=== PATIENT | male | born 1935 | race Hispanic/Latino ===

== ENCOUNTER 2017-04-12 13:45 | Inpatient (IN) | payer MEDICARE ==
[2017-04-10 10:39] VITALS: PULSE 80
[2017-06-22 22:48] VITALS: BMI 34.7
--- NOTE | 2017-06-22 23:20 | CP.PCM.HP ---
History of Present Illness - History of Present Illness History of Present Illness: PMD: Dr Carreon Chief Complaint: Blurred vision The Patient was seen and examined in the Rehab Unit HPI: 81 years old male transferred from the [facility] on 06/22/17 for Acute Rehab and continued medical care. He has hx of 2 CVA both treated with TPA, bladder cancer, A. fibrillation, HTN, GERD, CHF CAD and was admitted to the [facility] on 06/17/17 with left eye blurred vision and diagnosed with Right MCA dysfunction. PMH: HTN; GERD; CAD; A Fib; Bladder Cancer PSH: Back Surgery; Partial Uretertectomy; TURB; IVC filter placed on 06/19/17 SH: Lives alone, admits to 40 years of tobacco use but quit over 30 years ago. Denies ETOH and illicit drug use FH: Unknown Allergies: NKDA Present on Admission - Present on Admission Any Indicators Present on Admission: No History of DVT/PE: No History of Uncontrolled Diabetes: No Urinary Catheter: No Decubitus Ulcer Present: No Review of Systems - Constitutional Constitutional: absent: Anorexia, Chills, Fever, Weight Gain - EENT Eyes: Blurred Vision. absent: Requires Corrective Lenses Ears: absent: Decreased Hearing, Ear Discharge, Tinnitus Nose/Mouth/Throat: Epistaxis - Cardiovascular Cardiovascular: Leg Edema. absent: Chest Pain, Dyspnea - Respiratory Respiratory: absent: Cough, Dyspnea, Wheezing - Gastrointestinal Gastrointestinal: Constipation. absent: Diarrhea, Nausea, Vomiting - Genitourinary Genitourinary: absent: Dysuria, Flank Pain, Hematuria - Musculoskeletal Musculoskeletal: absent: Arthralgias, Back Pain, Muscle Weakness - Integumentary Integumentary: Swelling. absent: Pruritus, Rash - Neurological Neurological: absent: Confusion, Dizziness, Focal Weakness, Weakness - Psychiatric Psychiatric: absent: Anxiety, Confusion, Depression, Panic Attacks - Endocrine Endocrine: absent: Palpitations, Polydipsia, Polyphagia, Polyuria Past Patient History - Infectious Disease Hx of Infectious Diseases: None - Tetanus Immunizations Tetanus Immunization: Unknown - Past Medical History & Family History Past Medical History?: Yes - Past Social History Smoking Status: Never Smoked Chewing Tobacco Use: No Cigar Use: No Alcohol: None Home Situation {Lives}: Alone - CARDIAC Hx Atrial Fibrillation: Yes Hx Cardia Arrhythmia: Yes Hx Hypertension: Yes - PULMONARY Hx Respiratory Disorders: No - NEUROLOGICAL Hx Neurological Disorder: Yes HX Cerebrovascular Accident: Yes - HEENT Hx HEENT Problems: Yes Hx Cataracts: Yes (MARGO) - RENAL Hx Chronic Kidney Disease: No - ENDOCRINE/METABOLIC Hx Diabetes Mellitus Type 2: Yes - HEMATOLOGICAL/ONCOLOGICAL Hx Cancer: Yes (treated prostate/bladder) - INTEGUMENTARY Hx Basil Cell: No Other/Comment: skin in both lower ext hyperpigmented - MUSCULOSKELETAL/RHEUMATOLOGICAL Hx Musculoskeletal Disorders: Yes - GASTROINTESTINAL Hx Gastrointestinal Disorders: Yes Hx Gastroesophageal Reflux: Yes - GENITOURINARY/GYNECOLOGICAL Hx Genitourinary Disorders: Yes (bladder tumor removed 2010) Hx Prostate Problems: Yes - PSYCHIATRIC Hx Psychophysiologic Disorder: No Hx Substance Use: No - SURGICAL HISTORY Hx Surgeries: Yes Other/Comment: pilonidal cyst removed. TURP. Partial Uterotomy - ANESTHESIA Hx Anesthesia: Yes Hx Anesthesia Reactions: No Meds Allergies/Adverse Reactions: Allergies Allergy/AdvReac Type Severity Reaction Status Date / Time No Known Allergies Allergy Verified 06/22/17 22:48 Physical Exam - Constitutional Appears: No Acute Distress - Head Exam Head Exam: ATRAUMATIC, NORMAL INSPECTION, NORMOCEPHALIC - Eye Exam Eye Exam: EOMI, Normal appearance Pupil Exam: NORMAL ACCOMODATION, PERRL - ENT Exam ENT Exam: Mucous Membranes Moist, Normal Exam, Normal External Ear Exam - Neck Exam Neck exam: Positive for: Full Rom, Normal Inspection. Negative for: Lymphadenopathy, Tenderness - Respiratory Exam Respiratory Exam: Clear to Auscultation Bilateral. absent: Rales, Rhonchi, Wheezes - Cardiovascular Exam Cardiovascular Exam: Irregular Rhythm, +S1, +S2. absent: REGULAR RHYTHM, RRR - GI/Abdominal Exam GI & Abdominal Exam: Normal Bowel Sounds, Soft. absent: Guarding, Organomegaly , Tenderness - Rectal Exam Rectal Exam: Deferred - Extremities Exam Extremities exam: Positive for: full ROM, normal inspection. Negative for: calf tenderness, pedal edema - Back Exam Back exam: NORMAL INSPECTION. 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 Alston neurology for Follow up Dr. Gomez cardiology for follow up 1st. CT Head - No acute infarct Repeat Head CT on 06/18 demonstrated no hemorrhagic conversion Third repeat Head CT on 06/19 (ordered due to new onset headache in light of current sequelae) demonstrates confirmation of ischemic PROSTHETIST territory infarct. MRI brain w.o. contrast revealed trace petechial hemorrhages questioned at the medial anterior right occipital lobe with signal changes seen only in the gradient All anticoagulation has been stopped as a result of the hemorrhages. Repeat Head CT on 06/21 shows: Subtle high attenuation in the anterior superior occipital lobe could represent petechial hemorrhage. Per Dr. Alston--no anticoagulation at this point including no aspirin OT/PT History of CVA (cerebrovascular accident) Patient had two CVA, both with TPA admin No TPA for this current CVA since it met criteria for contraindication Was previously on warfarin but stopped due to bleeding s/p TURB Dr. Alston recommended Eliquis Crestor 10 PO HS Unable to anticoagulate due to the hemorrhages seen on MRI on 06/19/[address] Alston--no anticoagulation at this point including no aspirin Hypertension Lasix 20 PO HS HCTZ 25 PO QD Metoprolol 50 PO QD Atrial Fibrillation Rate controlled Metoprolol 50 mg PO QD Unable to anticoagulate due to the hemorrhages Repeat Head CT on 06/21 shows: Subtle high attenuation in the anterior superior occipital lobe could represent petechial hemorrhage. Per Dr. Alston--no anticoagulation at this point including no aspirin until after 4 weeks: Start with low dose ASA and dlow dose Eliquis. If medically stable at theat time , Eliquis can be increased to theraupetic dose of 5mg BID DVT Unable to anticoagulate at this time due to hemorrhage seen on MRI and follow up head CT IVC Filter History of epistaxis Per ENT Dr. Olsen, outpatient follow up since patient is not actively bleeding Leg pain Likely venous stasis Lac-Hydrin emollient and topical steroid Improvements noted Diabetes Newly diagnosed with hemoglobin A1c 7.7 Regular ISS low dose for now Prophylactic measure Heart Healthy Diet mod consistent carbs Protonix 40 mg SCDs c/i due to leg swelling Medication anticoagulation c/i due to petechial hemorrhage Colace - Date & Time Date: 06/22/17 Time: 23:20
[2017-06-23] MEDS: Insulin Regular 100 units/ml SC SCH ×4 (06:43→21:19)
[2017-06-23 09:08] LABS: HEMOGLOBIN 14.5 g/dL (12.0-18.0); MEAN CELL VOLUME 84.3 fl (80.0-94.0); MEAN CORPUSCULAR HEMOGLOBIN 28.3 pg (27.0-31.0); MEAN CORPUSCULAR HGB CONC 33.6 g/dL (33.0-37.0); RBC 5.11 Mil/uL (4.40-5.90); RED CELL DISTRIBUTION WIDTH 15.4 % (11.5-14.5); WHITE BLOOD COUNT 6.9 K/uL (4.8-10.8)
[2017-06-23 09:18] LABS: BLOOD UREA NITROGEN 30 mg/dl (9-20); GFR AFRICAN-AMERICAN > 60; GFR NON-AFRICAN AMERICAN 58
--- NOTE | 2017-06-23 09:52 | PCM.OPOC ---
Physiatry Overall Plan of Care - Overall Plan of Care Estimated Length of Stay in Weeks: 3 Rehab Impairment: Mobility, Gait, Balance, Coordination Etiologic Diagnosis: Cerebrovascular Accident Rehab/Medical Prognosis: Fair - Anticipated Interventions Physical Therapy:: Yes Occupational Therapy:: Yes Speech Therapy:: No Recreational Therapy:: Yes - Therapy Goals Bed Mobility: Supervision Ambulation: Supervision Functional Positional Changes:: Supervision - Discharge Plan Identification of Barriers to Discharge: Home Situation Discharge Destination: Home
--- NOTE | 2017-06-23 09:54 | CP.PCM.CON ---
History of Present Illness - History of Present Illness History of Present Illness: Dr Arana PMR consultation coverage on Cody Antony, born 1935 who has been admitted to [facility] for acute inpatient rehabilitation following a right MCA distribution infarct. He is stable albeit with functional deficits that require acute inpatient rehabilitation. Review of Systems - Constitutional Constitutional: absent: Chills - EENT Eyes: absent: Change in Vision Ears: absent: Ear Discharge, Disequilibrium, Dizziness Nose/Mouth/Throat: absent: Nasal Congestion - Cardiovascular Cardiovascular: absent: Chest Pain - Respiratory Respiratory: absent: Dyspnea, Hemoptysis, Dyspnea on Exertion - Gastrointestinal Gastrointestinal: absent: Belching, Constipation - Musculoskeletal Musculoskeletal: absent: Back Pain - Integumentary Integumentary: absent: Bleeding Lesions, Rash, Wounds - Neurological Neurological: absent: Abnormal Movements, Radicular Pain, Vertigo Past Patient History - Infectious Disease Hx of Infectious Diseases: None - Tetanus Immunizations Tetanus Immunization: Unknown - Past Medical History & Family History Past Medical History?: Yes - Past Social History Smoking Status: Never Smoked Chewing Tobacco Use: No Cigar Use: No Alcohol: None Home Situation {Lives}: Alone - CARDIAC Hx Atrial Fibrillation: Yes Hx Cardia Arrhythmia: Yes Hx Hypertension: Yes - PULMONARY Hx Respiratory Disorders: No - NEUROLOGICAL Hx Neurological Disorder: Yes HX Cerebrovascular Accident: Yes - HEENT Hx HEENT Problems: Yes Hx Cataracts: Yes (MARGO) - RENAL Hx Chronic Kidney Disease: No - ENDOCRINE/METABOLIC Hx Diabetes Mellitus Type 2: Yes - HEMATOLOGICAL/ONCOLOGICAL Hx Cancer: Yes (treated prostate/bladder) - INTEGUMENTARY Hx Basil Cell: No Other/Comment: skin in both lower ext hyperpigmented - MUSCULOSKELETAL/RHEUMATOLOGICAL Hx Musculoskeletal Disorders: Yes - GASTROINTESTINAL Hx Gastrointestinal Disorders: Yes Hx Gastroesophageal Reflux: Yes - GENITOURINARY/GYNECOLOGICAL Hx Genitourinary Disorders: Yes (bladder tumor removed 2010) Hx Prostate Problems: Yes - PSYCHIATRIC Hx Psychophysiologic Disorder: No Hx Substance Use: No - SURGICAL HISTORY Hx Surgeries: Yes Other/Comment: pilonidal cyst removed. TURP. Partial Uterotomy - ANESTHESIA Hx Anesthesia: Yes Hx Anesthesia Reactions: No Meds Allergies/Adverse Reactions: Allergies Allergy/AdvReac Type Severity Reaction Status Date / Time No Known Allergies Allergy Verified 06/22/17 22:48 - Medications Medications: Current Medications Acetaminophen (Tylenol 325mg Tab) 650 mg PO Q4 PRN PRN Reason: Headache Last Admin: 06/23/17 06:37 Dose: 650 mg Acetaminophen (Tylenol 325mg Tab) 650 mg PO Q8H PRN PRN Reason: pain Atorvastatin Calcium (Lipitor) 20 mg PO HS [facility] Furosemide (Lasix) 40 mg PO DAILY [facility] Hydrochlorothiazide (Hydrodiuril) 25 mg PO DAILY [facility] Insulin Human Regular (Humulin R) 0 units SC ACHS [facility] PRN Reason: Protocol Last Admin: 06/23/17 06:43 Dose: Not Given Lactic Acid (Lac-Hydrin 12% Lotion (225 G)) 1 applic EXT BID [facility] Losartan Potassium (Cozaar) 50 mg PO BID [facility] Metoprolol Succinate (Toprol Xl) 100 mg PO DAILY [facility] Potassium Chloride (K-Dur 20 Meq Er Tab) 40 meq PO DAILY [facility] Physical Exam - Constitutional Appears: Well, Non-toxic, No Acute Distress - Head Exam Head Exam: ATRAUMATIC, NORMAL INSPECTION, NORMOCEPHALIC - Eye Exam Eye Exam: EOMI - ENT Exam ENT Exam: Mucous Membranes Moist - Respiratory Exam Respiratory Exam: NORMAL BREATHING PATTERN - Cardiovascular Exam Cardiovascular Exam: REGULAR RHYTHM - GI/Abdominal Exam GI & Abdominal Exam: Normal Bowel Sounds - Extremities Exam Extremities exam: Positive for: full ROM. Negative for: calf tenderness, pedal edema - Neurological Exam Neurological exam: Alert, CN II-XII Intact, Oriented x3 - Psychiatric Exam Psychiatric exam: Normal Affect, Normal Mood Results - Vital Signs Recent Vital Signs: Last Vital Signs Temp 97.0 F L 06/23/17 07:49 Pulse 88 06/23/17 09:34 Resp 20 06/23/17 07:49 BP 123/78 06/23/17 07:49 Pulse Ox 95 06/23/17 09:34 - Labs Result Diagrams: 06/23/17 08:30 06/23/17 08:30 Labs: Laboratory Results - last 24 hr 06/23/17 06/23/17 06/23/17 00:16 06:27 08:30 WBC 6.9 RBC 5.11 Hgb 14.5 Hct 43.1 MCV 84.3 MCH 28.3 MCHC 33.6 RDW 15.4 H Plt Count 190 Sodium Potassium Chloride Carbon Dioxide Anion Gap BUN Creatinine Est GFR ( Amer) Est GFR (Non-Af Amer) POC Glucose (mg/dL) 93 79 Random Glucose Calcium 06/23/17 08:30 WBC RBC Hgb Hct MCV MCH MCHC RDW Plt Count Sodium 140 Potassium 3.8 Chloride 100 Carbon Dioxide 31 H Anion Gap 13 BUN 30 H Creatinine 1.2 Est GFR ( Amer) > 60 Est GFR (Non-Af Amer) 58 POC Glucose (mg/dL) Random Glucose 105 Calcium 9.0 Assessment & Plan - Assessment and Plan (Free Text) Assessment: PT/OT to continue to help increase functional independence Team conference for d/c planning Pain: controlled Vascular: no evidence of DVT GI: No evidence of constipation or diarrhea Patient is an excellent acute rehabilitation candidate and will have focused PT , OT and recreational therapy to help facilitate a safe and appropriate d/c plan impairment code 01.1
[2017-06-23] MEDS: Metoprolol Succinate 100 mg XL Tab PO SCH (10:05)
[2017-06-23] MEDS: Potassium Chloride 20 mEq ER Tab PO SCH (10:06)
[2017-06-23] MEDS ORDERED: Patient's Own Med (Rosuvastatin Calcium [Crestor] 10 MG) PO SCH (22:00)
[2017-06-24] MEDS: Insulin Regular 100 units/ml SC SCH ×4 (06:52→21:00)
[2017-06-24] MEDS: Potassium Chloride 20 mEq ER Tab PO SCH (09:00)
[2017-06-24] MEDS: Metoprolol Succinate 100 mg XL Tab PO SCH (09:02)
[2017-06-25] MEDS: Insulin Regular 100 units/ml SC SCH (06:30)
[2017-06-25] MEDS: Potassium Chloride 20 mEq ER Tab PO SCH (08:51)
--- NOTE | 2017-06-25 11:03 | CP.PCM.PN ---
Subjective - Date & Time of Evaluation Date of Evaluation: 06/25/17 Time of Evaluation: 10:00 - Subjective Subjective: Patient seen and examined. He is sitting up in his chair accompanied by family. He states that he is feeling better. He notes that he is still having blurry vision in his left eye in the morning but it improves by the afternoon. Has no other complaints at this time. Denies cp, sob. Hemodynamically stable, afebrile. Objective - Vital Signs/Intake and Output Vital Signs (last 24 hours): Temp Pulse Resp BP Pulse Ox 96.8 F L 95 H 20 123/77 96 06/25/17 07:40 06/25/17 07:40 06/25/17 07:40 06/25/17 08:52 06/25/17 07:40 - Medications Medications: Current Medications Acetaminophen (Tylenol 325mg Tab) 650 mg PO Q4 PRN PRN Reason: Headache Last Admin: 06/25/17 07:04 Dose: 650 mg Acetaminophen (Tylenol 325mg Tab) 650 mg PO Q8H PRN PRN Reason: pain 1-10. Atorvastatin Calcium (Lipitor) 20 mg PO HS [facility] Last Admin: 06/24/17 21:02 Dose: 20 mg Furosemide (Lasix) 40 mg PO DAILY [facility] Last Admin: 06/25/17 08:52 Dose: 40 mg Hydrochlorothiazide (Hydrodiuril) 25 mg PO DAILY [facility] Last Admin: 06/25/17 08:51 Dose: 25 mg Insulin Human Regular (Humulin R) 0 units SC ACHS [facility] PRN Reason: Protocol Last Admin: 06/25/17 06:30 Dose: Not Given Lactic Acid (Lac-Hydrin 12% Lotion (225 G)) 1 applic EXT BID [facility] Last Admin: 06/25/17 08:51 Dose: 1 applic Losartan Potassium (Cozaar) 50 mg PO BID [facility] Last Admin: 06/24/17 16:20 Dose: Not Given Metoprolol Succinate (Toprol Xl) 100 mg PO DAILY [facility] Last Admin: 06/24/17 09:02 Dose: 100 mg Potassium Chloride (K-Dur 20 Meq Er Tab) 40 meq PO DAILY [facility] Last Admin: 06/25/17 08:51 Dose: 40 meq - Labs Labs: 06/23/17 08:30 06/23/17 08:30 - Additional Findings Additional findings: Physical exam: Constitutional- cooperative, awake, alert Head- NCAT, PERRL Eye- PERRL, EOMI ENT- normal exam, MMM. Neck- normal inspection, supple, no JVD Respiratory- CTAB, no wheezes rales rhonchi Cardiovascular- RRR, +S1, +S2 no MRG GI/Abdominal- normal bowel sounds, soft, no mass, no hsm Skin- warm, dry Extremities Exam- normal capillary refill, normal inspection Neurological Exam- alert, awake, oriented Psych- normal mood, normal affect Assessment and Plan - Assessment and Plan (Free Text) Plan: This is an 81 year old malewith pmh of atrial fibrillation, s/p 2 CVA tx with tPA, bladder cancer, htn, GERD, chronic CHF, CAD, transferred from [facility] on 06/22/2017 for acute rehabilitation after 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 Acute CVA with Hemianopia of the left eye Dr. Alston neurology consulted Dr. Gomez cardiology consulted 1st. CT Head - No acute infarct Repeat Head CT on 06/18 demonstrated no hemorrhagic conversion Third repeat Head CT on 06/19 (ordered due to new onset headache in light of current sequelae) demonstrates confirmation of ischemic [employer] territory infarct. MRI brain w.o. contrast revealed trace petechial hemorrhages questioned at the medial anterior right occipital lobe with signal changes seen only in the gradient All anticoagulation has been stopped as a result of the hemorrhages. Repeat Head CT on 06/21 shows: Subtle high attenuation in the anterior superior occipital lobe could represent petechial hemorrhage. Per Dr. Alston--no anticoagulation at this point including no aspirin OT/PT History of CVA (cerebrovascular accident) Patient had two CVA, both with TPA admin No TPA for this current CVA due to contraindication Was previously on warfarin but stopped due to bleeding s/p TURB Dr. Alston recommended Eliquis Crestor 10 PO HS Unable to anticoagulate due to the hemorrhages seen on MRI on 06/19/[address] Alston--no anticoagulation at this point including no aspirin Hypertension- well controlled Lasix 20 PO HS HCTZ 25 PO QD Metoprolol 50 PO QD Atrial Fibrillation Rate controlled Metoprolol 50 mg PO QD Unable to anticoagulate due to the hemorrhages Repeat Head CT on 06/21 shows: Subtle high attenuation in the anterior superior occipital lobe could represent petechial hemorrhage. Per Dr. Alston--no anticoagulation at this point including no aspirin until after 4 weeks: Start with low dose ASA and low dose Eliquis. If medically stable at theat time , Eliquis can be increased to theraupetic dose of 5mg BID DVT Unable to anticoagulate at this time due to hemorrhage seen on MRI and follow up head CT IVC Filter History of epistaxis Per ENT Dr. Olsen, outpatient follow up since patient is not actively bleeding Leg pain Likely venous stasis Lac-Hydrin emollient and topical steroid Improvements noted Diabetes Newly diagnosed with hemoglobin A1c 7.7 Regular ISS low dose for now Prophylactic measure Heart Healthy Diet mod consistent carbs Protonix 40 mg SCDs c/i due to leg swelling Medication anticoagulation c/i due to petechial hemorrhage Heidi
[2017-06-25] MEDS: Metoprolol Succinate 100 mg XL Tab PO SCH ×2 (14:42→17:50)
[2017-06-26 06:12] LABS: HEMOGLOBIN 14.4 g/dL (12.0-18.0); MEAN CORPUSCULAR HEMOGLOBIN 28.1 pg (27.0-31.0); MEAN CORPUSCULAR HGB CONC 33.1 g/dL (33.0-37.0); RBC 5.11 Mil/uL (4.40-5.90); RED CELL DISTRIBUTION WIDTH 15.3 % (11.5-14.5); WHITE BLOOD COUNT 7.2 K/uL (4.8-10.8)
[2017-06-26 06:25] LABS: BLOOD UREA NITROGEN 34 mg/dl (9-20); GFR AFRICAN-AMERICAN > 60; GFR NON-AFRICAN AMERICAN 58
[2017-06-26] MEDS: Metoprolol Succinate 100 mg XL Tab PO SCH (08:20)
[2017-06-26] MEDS: Potassium Chloride 20 mEq ER Tab PO SCH (08:21)
--- NOTE | 2017-06-26 13:19 | CP.PCM.PN ---
Subjective - Date & Time of Evaluation Date of Evaluation: 06/26/17 Time of Evaluation: 13:18 - Subjective Subjective: Patient seen in room doing ok denies sob/cp motivated in therapies continue current care team conf. tomorrow Objective - Vital Signs/Intake and Output Vital Signs (last 24 hours): Temp Pulse Resp BP Pulse Ox 97.2 F L 84 22 140/87 96 06/26/17 08:45 06/26/17 08:45 06/26/17 08:45 06/26/17 08:45 06/26/17 08:45 - Medications Medications: Current Medications Acetaminophen (Tylenol 325mg Tab) 650 mg PO Q4 PRN PRN Reason: Headache Last Admin: 06/26/17 09:09 Dose: 650 mg Acetaminophen (Tylenol 325mg Tab) 650 mg PO Q8H PRN PRN Reason: pain 1-10. Atorvastatin Calcium (Lipitor) 20 mg PO HS [facility] Last Admin: 06/25/17 21:02 Dose: 20 mg Furosemide (Lasix) 40 mg PO DAILY [facility] Last Admin: 06/26/17 08:21 Dose: 40 mg Hydrochlorothiazide (Hydrodiuril) 25 mg PO DAILY [facility] Last Admin: 06/26/17 08:20 Dose: 25 mg Lactic Acid (Lac-Hydrin 12% Lotion (225 G)) 1 applic EXT BID [facility] Last Admin: 06/26/17 08:21 Dose: 1 applic Losartan Potassium (Cozaar) 50 mg PO BID [facility] Last Admin: 06/26/17 08:20 Dose: 50 mg Metoprolol Succinate (Toprol Xl) 100 mg PO DAILY [facility] Last Admin: 06/26/17 08:20 Dose: 100 mg Potassium Chloride (K-Dur 20 Meq Er Tab) 40 meq PO DAILY [facility] Last Admin: 06/26/17 08:21 Dose: 40 meq - Labs Labs: 06/26/17 05:30 06/26/17 05:30
[2017-06-27] MEDS: Metoprolol Succinate 100 mg XL Tab PO SCH (08:28)
[2017-06-27] MEDS: Potassium Chloride 20 mEq ER Tab PO SCH (08:28)
[2017-06-27] MEDS: Alum-Mag Hydrox-Simethicone Susp (30 mL) PO PRN (10:58)
--- NOTE | 2017-06-27 12:16 | PSY.TMCNF ---
Nursing - Vital Signs Vital Signs (Last 8 hours): Vital Signs 06/27/17 06/27/17 06/27/17 08:09 08:27 08:28 Temperature 98.1 F Pulse Rate 93 H 77 Respiratory 22 Rate Blood Pressure 134/84 134/55 L 134/55 L O2 Sat by Pulse 99 Oximetry 06/27/17 06/27/17 09:00 10:56 Temperature 98.1 F Pulse Rate 77 Respiratory 22 Rate Blood Pressure 134/55 L 136/71 O2 Sat by Pulse Oximetry Pain: 0 - Precautions: Precautions: Fall Prevention - Medications/Other Issues Comment: Pt is at moderate nutritional risk. Goals: 1. Consume 75-100% at mealtimes. 2. Maintain good glycemic control:GLU:70-180mg/dl. Follow-up assessment due by 06/30/2017. - Consults Comment: Dr. Gaytan-Tao - Toileting Toileting: Supervision - Bladder Management Bladder Pattern: Normal Voiding Method: Urinal Bladder Management: Supervision Frequency of Accidents: 0 - Bowel Management Bowel Pattern: Normal Bowel Management: Supervision Frequency of Accidents: 0 - Transfers Transfers: Minimal Assistance - ADL's ADL's: Minimal Assistance - Pain Management Comments: Tylenol PRN ORONA - Patient/Family Teaching Comments: Care post CVA and safety precautions - Goals/Time Frame Comments: Per multidisciplinary care plan and goals - Provider Provider: Sidra GARAY RN CRRN Physical Therapy - Bed Mobility Bed Mobility: Contact Guard - Transfers Wheelchair to Mat: Contact Guard Sit to Stand: Contact Guard - Ambulation Level of Assistance: Supervision, Verbal Cues, Contact Guard Distance (ft.): 150 Assistive Devices: Single point cane - Stair Negotiation Stairs: Level of Assistance: Verbal Cues, Contact Guard Number of Stairs: 12 Stairs: Assistive Devices: Left Handrail, Single point cane - Standing Balance Static Stand: Supervision Dynamic Stand: Minimal Assistance - Pain Management Techniques: Medication, Relaxation Techniques Comment: Alleviating technique : time. -Patient has intermittent c/o pressure headache usually in the AM or post therapy session . Pain is alleviated with medication and/or time. -Patient has c/o blurred vision usually in AM but he states does not have the blurred vision in the PM. -Pt had c/o indigestion today. Nursing made aware. Described pain as slight and uncomfortable but not painful. - Insight/Carryover Insight/Carryover: Good - Patient/Family Education Comment: Continued patient edu on safety awareness during transfer, self care and mobility to reduce the risk of falling w/in the home. - Assessment/Plan Assessment: Pt was educated on the benefits of participating in recreation therapy sessions throughout stay on unit. Pt presents with decrease command following and decrease safety awareness. Pt would benefit from participating in recreation therapy sessions throughout stay on unit to improve arousal level, activity tolerance level, and direction following. - Goals Timeframe: 2 weeks Goals: Patient's goals are to be modified independent with self care , mobility , transfers, as well as improve strength, activity tolerance and dynamic standing standing balance during ADLs/IADLs in order to reduce the risk of falling w/in the home and prepare for a safe and sustainable D/C home. - Provider License Number: [id number] Occupational Therapy - Arousal/Attention/Orientation Patient Orientation: Person, Place - ADL/IADL Self Feeding: Set-up Help Grooming: Set-up Help Bathing-Upper Extremity: Supervision, Set-up Help Bathing-Lower Extremity: Supervision, Contact Guard Dressing-Upper Extremity: Set-up Help Dressing-Lower Extremity: Set-up Help, Contact Guard Homemaking: Minimal Assistance Comment: Patient benefits from extended rest breaks and increased time to complete tasks. - Sitting Balance Static Sitting: Independent without upper extremity support Dynamic Sitting: Reaches across midline, Reaches out of base of support, Requires supervision - Transfers Wheelchair to Bed Transfers: Supervision, Contact Guard Toilet Transfers: Supervision, Contact Guard Tub Transfers: Supervision, Contact Guard Comment: single point cane used for transfers, commode with spalshguard using during toileting - Upper Extremity Status Right Upper Extremity Comment: WFL Left Upper Extremity Comment: WFL - Pain Alleviating Techniques: Medication, Relaxation Techniques Comment: Alleviating technique : time. -Patient has intermittent c/o pressure headache usually in the AM or post therapy session . Pain is alleviated with medication and/or time. -Patient has c/o blurred vision usually in AM but he states does not have the blurred vision in the PM. -Pt had c/o indigestion today. Nursing made aware. Described pain as slight and uncomfortable but not painful. - Insight/Carryover Insight/Carryover: Good - Patient/Family Education Comment: Continued patient edu on safety awareness during transfer, self care and mobility to reduce the risk of falling w/in the home. - Assessment/Plan Assessment: Pt was educated on the benefits of participating in recreation therapy sessions throughout stay on unit. Pt presents with decrease command following and decrease safety awareness. Pt would benefit from participating in recreation therapy sessions throughout stay on unit to improve arousal level, activity tolerance level, and direction following. - Goals Timeframe: 2 weeks Goals: Patient's goals are to be modified independent with self care , mobility , transfers, as well as improve strength, activity tolerance and dynamic standing standing balance during ADLs/IADLs in order to reduce the risk of falling w/in the home and prepare for a safe and sustainable D/C home. - Provider Therapist: PETE Pruett/[facility] - Consult Information Patient on Program: Yes Medical Diagnosis: CVA Treatment Diagnosis: mild-moderate cognitive deficits - Assessment Problem Solving Impairment: Mild Memory Impairment: Moderate - Plan Assessment: Pt was educated on the benefits of participating in recreation therapy sessions throughout stay on unit. Pt presents with decrease command following and decrease safety awareness. Pt would benefit from participating in recreation therapy sessions throughout stay on unit to improve arousal level, activity tolerance level, and direction following. - Provider Therapist: Jane Pinto License Number: [id number] Recreational Therapy - Participation Participation: Participates in Individual and/or Group Sessions, Monitors His/ Her Own Leisure Time - Attendance Attendance: 3-5 times per week - Activities Leisure Activities: Cards and Games - Socialization Level of Socialization: Initiates/interacts freely with care givers and peer - Diversional Time Diversional Time: television, likes to play cards - Assessment Assessment/Plan: Pt was educated on the benefits of participating in recreation therapy sessions throughout stay on unit. Pt presents with decrease command following and decrease safety awareness. Pt would benefit from participating in recreation therapy sessions throughout stay on unit to improve arousal level, activity tolerance level, and direction following. Problems Currently Limiting Participation: decrease leisure awareness level, blurry vision in L eye, [place] at times Goals and Time Frame: Pt will be encouraged to participate in 1:1 and group recreation therapy sessions 3-5x week to improve activity awareness level, arousal level, direction following, and command following. - Provider Therapist: Daiana Hansen, CURRICULUM DEVELOPMENT COORDINATOR #[id number] Nutrition - Current Diet Current Diet/ Supplement/ Feedings: Mech altered (finely chop), moderate consistent CHO, 2 gm Na diet with honey thick liquids and Ensure Pudding TID. - Appetite Percent Meal Consumed: 75-100% - Comments Comments: Care post CVA and safety precautions - Assessment/Goals/Time Frame Assessment/Goals/Time Frame: Pt is at moderate nutritional risk. Goals: 1. Consume 75-100% at mealtimes. 2. Maintain good glycemic control:GLU:70-180mg/ dl. Follow-up assessment due by 06/30/2017. - Provider Provider: Lisa Gamino MS, RD Case Management - Discharge Plan Discharge Plan: Home alone Rehabilitation Plan - Discharge Plan Estimated Date of Discharge: 07/04/17 Discharge to: Home
--- NOTE | 2017-06-27 12:27 | CP.PCM.PN ---
Subjective - Date & Time of Evaluation Date of Evaluation: 06/27/17 Time of Evaluation: 12:26 - Subjective Subjective: Patient seen in room doing well ambulating 150' discussed with him at length that driving is not recommended at this point continue current care Objective - Vital Signs/Intake and Output Vital Signs (last 24 hours): Temp Pulse Resp BP Pulse Ox 98.1 F 77 22 136/71 99 06/27/17 09:00 06/27/17 09:00 06/27/17 09:00 06/27/17 10:56 06/27/17 08:09 - Medications Medications: Current Medications Acetaminophen (Tylenol 325mg Tab) 650 mg PO Q4 PRN PRN Reason: Headache Last Admin: 06/27/17 06:20 Dose: 650 mg Acetaminophen (Tylenol 325mg Tab) 650 mg PO Q8H PRN PRN Reason: pain 1-10. Al Hydrox/Mg Hydrox/Simethicone (Maalox Plus 30 Ml) 30 ml PO Q6 PRN PRN Reason: Indigestion / Heartburn Last Admin: 06/27/17 10:58 Dose: 30 ml Atorvastatin Calcium (Lipitor) 20 mg PO HS [facility] Last Admin: 06/26/17 22:32 Dose: 20 mg Furosemide (Lasix) 40 mg PO DAILY [facility] Last Admin: 06/27/17 08:28 Dose: 40 mg Hydrochlorothiazide (Hydrodiuril) 25 mg PO DAILY [facility] Last Admin: 06/27/17 08:27 Dose: 25 mg Lactic Acid (Lac-Hydrin 12% Lotion (225 G)) 1 applic EXT BID [facility] Last Admin: 06/27/17 08:27 Dose: 1 applic Losartan Potassium (Cozaar) 50 mg PO BID [facility] Last Admin: 06/27/17 08:27 Dose: 50 mg Metoprolol Succinate (Toprol Xl) 100 mg PO DAILY [facility] Last Admin: 06/27/17 08:28 Dose: 100 mg Potassium Chloride (K-Dur 20 Meq Er Tab) 40 meq PO DAILY [facility] Last Admin: 06/27/17 08:28 Dose: 40 meq - Labs Labs: 06/26/17 05:30 06/26/17 05:30
--- NOTE | 2017-06-27 14:36 | CP.PCM.PN ---
Subjective - Date & Time of Evaluation Date of Evaluation: 06/27/17 Time of Evaluation: 11:45 - Subjective Subjective: Patient seen and examined at bedside. He is complaining of some indigestion/ heartburn this morning and was given Maalox with some improvement. He has no other complaints today other than noting continued blurry vision in his left eye in the morning that improves somewhat by the afternoon. Denies cp, sob. Hemodynamically stable. Objective - Vital Signs/Intake and Output Vital Signs (last 24 hours): Temp Pulse Resp BP Pulse Ox 98.1 F 77 22 136/71 99 06/27/17 09:00 06/27/17 09:00 06/27/17 09:00 06/27/17 10:56 06/27/17 08:09 - Medications Medications: Current Medications Acetaminophen (Tylenol 325mg Tab) 650 mg PO Q4 PRN PRN Reason: Headache Last Admin: 06/27/17 06:20 Dose: 650 mg Acetaminophen (Tylenol 325mg Tab) 650 mg PO Q8H PRN PRN Reason: pain 1-10. Al Hydrox/Mg Hydrox/Simethicone (Maalox Plus 30 Ml) 30 ml PO Q6 PRN PRN Reason: Indigestion / Heartburn Last Admin: 06/27/17 10:58 Dose: 30 ml Atorvastatin Calcium (Lipitor) 20 mg PO HS [facility] Last Admin: 06/26/17 22:32 Dose: 20 mg Furosemide (Lasix) 40 mg PO DAILY [facility] Last Admin: 06/27/17 08:28 Dose: 40 mg Hydrochlorothiazide (Hydrodiuril) 25 mg PO DAILY [facility] Last Admin: 06/27/17 08:27 Dose: 25 mg Lactic Acid (Lac-Hydrin 12% Lotion (225 G)) 1 applic EXT BID [facility] Last Admin: 06/27/17 08:27 Dose: 1 applic Losartan Potassium (Cozaar) 50 mg PO BID [facility] Last Admin: 06/27/17 08:27 Dose: 50 mg Metoprolol Succinate (Toprol Xl) 100 mg PO DAILY [facility] Last Admin: 06/27/17 08:28 Dose: 100 mg Potassium Chloride (K-Dur 20 Meq Er Tab) 40 meq PO DAILY [facility] Last Admin: 06/27/17 08:28 Dose: 40 meq - Labs Labs: 06/26/17 05:30 06/26/17 05:30 - Additional Findings Additional findings: Constitutional- cooperative, awake, alert Head- NCAT, PERRL Eye- PERRL, EOMI ENT- normal exam, MMM. Neck- normal inspection, supple, no JVD Respiratory- CTAB, no wheezes rales rhonchi Cardiovascular- RRR, +S1, +S2 no MRG GI/Abdominal- normal bowel sounds, soft, no mass, no hsm Skin- warm, dry Extremities Exam- normal capillary refill, normal inspection Neurological Exam- alert, awake, oriented Psych- normal mood, normal affect Assessment and Plan - Assessment and Plan (Free Text) Plan: This is an 81 year old male with pmh of atrial fibrillation, s/p 2 CVA tx with tPA, bladder cancer, htn, GERD, chronic CHF, CAD, transferred from [facility] on 06/22/2017 for acute rehabilitation after 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 Acute CVA with Hemianopia of the left eye Dr. Alston neurology consulted Dr. Gomez cardiology consulted 1st. CT Head - No acute infarct Repeat Head CT on 06/18 demonstrated no hemorrhagic conversion Third repeat Head CT on 06/19 (ordered due to new onset headache in light of current sequelae) demonstrates confirmation of ischemic B[employer] NOTE DESIGNER territory infarct. MRI brain w.o. contrast revealed trace petechial hemorrhages questioned at the medial anterior right occipital lobe with signal changes seen only in the gradient All anticoagulation has been stopped as a result of the hemorrhages. Repeat Head CT on 06/21 shows: Subtle high attenuation in the anterior superior occipital lobe could represent petechial hemorrhage. Per Dr. Alston--no anticoagulation at this point including no aspirin OT/PT History of CVA (cerebrovascular accident) Patient had two CVA, both with TPA admin No TPA for this current CVA due to contraindication Was previously on warfarin but stopped due to bleeding s/p TURB Dr. Alston recommended Eliquis Crestor 10 PO HS Unable to anticoagulate due to the hemorrhages seen on MRI on 06/19/[address] Alston--no anticoagulation at this point including no aspirin Hypertension- well controlled Lasix 20 PO HS HCTZ 25 PO QD Metoprolol 50 PO QD Atrial Fibrillation Rate controlled Metoprolol 50 mg PO QD Unable to anticoagulate due to the hemorrhages Repeat Head CT on 06/21 shows: Subtle high attenuation in the anterior superior occipital lobe could represent petechial hemorrhage. Per Dr. Alston--no anticoagulation at this point including no aspirin until after 4 weeks: Start with low dose ASA and low dose Eliquis. If medically stable at theat time , Eliquis can be increased to theraupetic dose of 5mg BID DVT Unable to anticoagulate at this time due to hemorrhage seen on MRI and follow up head CT IVC Filter History of epistaxis Per ENT Dr. Olsen, outpatient follow up since patient is not actively bleeding Leg pain Likely venous stasis Lac-Hydrin emollient and topical steroid Improvements noted Prophylactic measure Heart Healthy Diet mod consistent carbs Protonix 40 mg SCDs c/i due to leg swelling Medication anticoagulation c/i due to petechial hemorrhage Colace
[2017-06-28] MEDS: Potassium Chloride 20 mEq ER Tab PO SCH (08:19)
[2017-06-28] MEDS: Metoprolol Succinate 100 mg XL Tab PO SCH (08:19)
[2017-06-29] MEDS: Alum-Mag Hydrox-Simethicone Susp (30 mL) PO PRN (08:38)
[2017-06-29] MEDS: Metoprolol Succinate 100 mg XL Tab PO SCH (10:00)
--- NOTE | 2017-06-29 14:23 | CP.PCM.PN ---
Subjective - Date & Time of Evaluation Date of Evaluation: 06/29/17 Time of Evaluation: 13:00 - Subjective Subjective: Patient seen and examined sitting out of bed to chair. He is complaining of a nosebleed today and yesterday and is complaining of nasal mucosal dryness. He does state that his heartburn has improved. Chronic blurry vision as previously documented. Denies cp/sob. Hemodynamically stable, afebrile. Objective - Vital Signs/Intake and Output Vital Signs (last 24 hours): Temp Pulse Resp BP Pulse Ox 98 F 82 20 130/70 98 06/29/17 09:54 06/29/17 10:00 06/29/17 09:54 06/29/17 10:00 06/29/17 09:54 - Medications Medications: Current Medications Acetaminophen (Tylenol 325mg Tab) 650 mg PO Q4 PRN PRN Reason: Headache Last Admin: 06/29/17 08:40 Dose: 650 mg Acetaminophen (Tylenol 325mg Tab) 650 mg PO Q8H PRN PRN Reason: pain 1-10. Last Admin: 06/29/17 06:05 Dose: 650 mg Al Hydrox/Mg Hydrox/Simethicone (Maalox Plus 30 Ml) 30 ml PO Q6 PRN PRN Reason: Indigestion / Heartburn Last Admin: 06/29/17 08:38 Dose: 30 ml Atorvastatin Calcium (Lipitor) 20 mg PO HS [facility] Last Admin: 06/28/17 21:48 Dose: 20 mg Furosemide (Lasix) 40 mg PO DAILY [facility] Last Admin: 06/29/17 08:38 Dose: 40 mg Hydrochlorothiazide (Hydrodiuril) 25 mg PO DAILY [facility] Last Admin: 06/29/17 08:37 Dose: 25 mg Lactic Acid (Lac-Hydrin 12% Lotion (225 G)) 1 applic EXT BID [facility] Last Admin: 06/29/17 09:00 Dose: 1 applic Losartan Potassium (Cozaar) 50 mg PO BID [facility] Last Admin: 06/29/17 08:37 Dose: 50 mg Metoprolol Succinate (Toprol Xl) 100 mg PO DAILY [facility] Last Admin: 06/29/17 10:00 Dose: 100 mg Sodium Chloride ([place] Nasal [place]) 2 sprays DAR BID [facility] - Labs Labs: 06/26/17 05:30 06/26/17 05:30 - Additional Findings Additional findings: Constitutional- cooperative, awake, alert Head- NCAT, PERRL Eye- PERRL, EOMI ENT- normal exam, MMM. Neck- normal inspection, supple, no JVD Respiratory- CTAB, no wheezes rales rhonchi Cardiovascular- RRR, +S1, +S2 no MRG GI/Abdominal- normal bowel sounds, soft, no mass, no hsm Skin- warm, dry Extremities Exam- normal capillary refill, normal inspection Neurological Exam- alert, awake, oriented Psych- normal mood, normal affect Assessment and Plan - Assessment and Plan (Free Text) Plan: This is an 81 year old male with pmh of atrial fibrillation, s/p 2 CVA tx with tPA, bladder cancer, htn, GERD, chronic CHF, CAD, transferred from [facility] on 06/22/2017 for acute rehabilitation after 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 Acute CVA with Hemianopia of the left eye Dr. Alston neurology consulted Dr. Gomez cardiology consulted 1st. CT Head - No acute infarct Repeat Head CT on 06/18 demonstrated no hemorrhagic conversion Third repeat Head CT on 06/19 (ordered due to new onset headache in light of current sequelae) demonstrates confirmation of ischemic [employer] WORKER MAINTENANCE territory infarct. MRI brain w.o. contrast revealed trace petechial hemorrhages questioned at the medial anterior right occipital lobe with signal changes seen only in the gradient All anticoagulation has been stopped as a result of the hemorrhages. Repeat Head CT on 06/21 shows: Subtle high attenuation in the anterior superior occipital lobe could represent petechial hemorrhage. Per Dr. Alston--no anticoagulation at this point including no aspirin OT/PT History of CVA (cerebrovascular accident) Patient had two CVA, both with TPA admin No TPA for this current CVA due to contraindication Was previously on warfarin but stopped due to bleeding s/p TURB Dr. Alston recommended Eliquis Crestor 10 PO HS Unable to anticoagulate due to the hemorrhages seen on MRI on 06/19/[address] Alston--no anticoagulation at this point including no aspirin Hypertension- well controlled Lasix 20 PO HS HCTZ 25 PO QD Losartan 50 mg po q12 H Metoprolol 100 mg po daily Atrial Fibrillation Rate controlled Metoprolol 50 mg PO QD Unable to anticoagulate due to the hemorrhages Repeat Head CT on 06/21 shows: Subtle high attenuation in the anterior superior occipital lobe could represent petechial hemorrhage. Per Dr. Alston--no anticoagulation at this point including no aspirin until after 4 weeks: Start with low dose ASA and low dose Eliquis. If medically stable at theat time , Eliquis can be increased to theraupetic dose of 5mg BID DVT Unable to anticoagulate at this time due to hemorrhage seen on MRI and follow up head CT IVC Filter History of epistaxis Sodium chloride nasal spray BID Per ENT Dr. Olsen, outpatient follow up Leg pain Likely venous stasis Lac-Hydrin emollient and topical steroid Improvements noted Prophylactic measure Heart Healthy Diet mod consistent carbs Protonix 40 mg SCDs c/i due to leg swelling Medication anticoagulation c/i due to petechial hemorrhage Colace
--- NOTE | 2017-06-29 16:15 | CP.PCM.PN ---
Subjective - Date & Time of Evaluation Date of Evaluation: 06/29/17 Time of Evaluation: 16:14 - Subjective Subjective: Patient seen in room with family present denies pain doing well in therapies continues to improve gait and function excellent rehab patient continue current care Objective - Vital Signs/Intake and Output Vital Signs (last 24 hours): Temp Pulse Resp BP Pulse Ox 98 F 82 20 130/70 98 06/29/17 09:54 06/29/17 10:00 06/29/17 09:54 06/29/17 10:00 06/29/17 09:54 - Medications Medications: Current Medications Acetaminophen (Tylenol 325mg Tab) 650 mg PO Q4 PRN PRN Reason: Headache Last Admin: 06/29/17 08:40 Dose: 650 mg Acetaminophen (Tylenol 325mg Tab) 650 mg PO Q8H PRN PRN Reason: pain 1-10. Last Admin: 06/29/17 06:05 Dose: 650 mg Al Hydrox/Mg Hydrox/Simethicone (Maalox Plus 30 Ml) 30 ml PO Q6 PRN PRN Reason: Indigestion / Heartburn Last Admin: 06/29/17 08:38 Dose: 30 ml Atorvastatin Calcium (Lipitor) 20 mg PO HS [facility] Last Admin: 06/28/17 21:48 Dose: 20 mg Furosemide (Lasix) 40 mg PO DAILY [facility] Last Admin: 06/29/17 08:38 Dose: 40 mg Hydrochlorothiazide (Hydrodiuril) 25 mg PO DAILY [facility] Last Admin: 06/29/17 08:37 Dose: 25 mg Lactic Acid (Lac-Hydrin 12% Lotion (225 G)) 1 applic EXT BID [facility] Last Admin: 06/29/17 09:00 Dose: 1 applic Losartan Potassium (Cozaar) 50 mg PO BID [facility] Last Admin: 06/29/17 08:37 Dose: 50 mg Metoprolol Succinate (Toprol Xl) 100 mg PO DAILY [facility] Last Admin: 06/29/17 10:00 Dose: 100 mg Sodium Chloride ([place] Nasal [place]) 2 sprays DAR BID [facility] - Labs Labs: 06/26/17 05:30 06/26/17 05:30
[2017-06-29] MEDS: Nasal Spray(Ocean spray) NAS SCH (17:08)
[2017-06-30] MEDS: Metoprolol Succinate 100 mg XL Tab PO SCH (08:32)
[2017-06-30] MEDS: Nasal Spray(Ocean spray) NAS SCH ×2 (08:33→17:41)
--- NOTE | 2017-06-30 17:19 | CP.PCM.PN ---
Subjective - Date & Time of Evaluation Date of Evaluation: 06/30/17 Time of Evaluation: 17:18 - Subjective Subjective: Patient seen in room denies sob/cp no headaches continues to do well in therapies continue current care Objective - Vital Signs/Intake and Output Vital Signs (last 24 hours): Temp Pulse Resp BP Pulse Ox 98.2 F 97 H 21 115/69 97 06/30/17 08:46 06/30/17 08:46 06/30/17 08:46 06/30/17 08:46 06/30/17 08:46 - Medications Medications: Current Medications Acetaminophen (Tylenol 325mg Tab) 650 mg PO Q4 PRN PRN Reason: Headache Last Admin: 06/29/17 08:40 Dose: 650 mg Acetaminophen (Tylenol 325mg Tab) 650 mg PO Q8H PRN PRN Reason: pain 1-10. Last Admin: 06/29/17 21:58 Dose: 650 mg Al Hydrox/Mg Hydrox/Simethicone (Maalox Plus 30 Ml) 30 ml PO Q6 PRN PRN Reason: Indigestion / Heartburn Last Admin: 06/29/17 08:38 Dose: 30 ml Atorvastatin Calcium (Lipitor) 20 mg PO HS [facility] Last Admin: 06/29/17 21:58 Dose: 20 mg Furosemide (Lasix) 40 mg PO DAILY [facility] Last Admin: 06/30/17 08:32 Dose: 40 mg Hydrochlorothiazide (Hydrodiuril) 25 mg PO DAILY [facility] Last Admin: 06/30/17 08:32 Dose: 25 mg Lactic Acid (Lac-Hydrin 12% Lotion (225 G)) 1 applic EXT BID [facility] Last Admin: 06/30/17 08:33 Dose: 1 applic Losartan Potassium (Cozaar) 50 mg PO BID [facility] Last Admin: 06/30/17 08:32 Dose: 50 mg Metoprolol Succinate (Toprol Xl) 100 mg PO DAILY [facility] Last Admin: 06/30/17 08:32 Dose: 100 mg Sodium Chloride ([place] Nasal [place]) 2 sprays DAR BID [facility] Last Admin: 06/30/17 08:33 Dose: 1 applic - Labs Labs: 06/26/17 05:30 06/26/17 05:30
[2017-06-30 20:36] VITALS: RESP 20
[2017-07-01] MEDS: Nasal Spray(Ocean spray) NAS SCH ×2 (08:24→16:56)
[2017-07-01] MEDS: Metoprolol Succinate 100 mg XL Tab PO SCH (08:26)
[2017-07-01] MEDS: Alum-Mag Hydrox-Simethicone Susp (30 mL) PO PRN (10:11)
[2017-07-02] MEDS: Metoprolol Succinate 100 mg XL Tab PO SCH (08:48)
[2017-07-02] MEDS: Nasal Spray(Ocean spray) NAS SCH ×2 (08:49→16:25)
[2017-07-02] MEDS: Alum-Mag Hydrox-Simethicone Susp (30 mL) PO PRN (10:11)
--- NOTE | 2017-07-02 13:33 | CP.PCM.PN ---
Subjective - Date & Time of Evaluation Date of Evaluation: 07/02/17 Time of Evaluation: 10:00 - Subjective Subjective: Patient seen out of bed in wheelchair with physical therapy. Continues to cooperate and is doing well with therapies. No further epistaxis. No acute events overnight. Denies cp/sob. HD stable, afebrile. Objective - Vital Signs/Intake and Output Vital Signs (last 24 hours): Temp Pulse Resp BP Pulse Ox 97.9 F 62 20 134/77 97 07/02/17 09:32 07/02/17 09:32 07/02/17 09:32 07/02/17 09:32 07/02/17 09:32 - Medications Medications: Current Medications Acetaminophen (Tylenol 325mg Tab) 650 mg PO Q4 PRN PRN Reason: Headache Last Admin: 07/02/17 06:36 Dose: 650 mg Acetaminophen (Tylenol 325mg Tab) 650 mg PO Q8H PRN PRN Reason: pain 1-10. Last Admin: 06/29/17 21:58 Dose: 650 mg Al Hydrox/Mg Hydrox/Simethicone (Maalox Plus 30 Ml) 30 ml PO Q6 PRN PRN Reason: Indigestion / Heartburn Last Admin: 07/02/17 10:11 Dose: 30 ml Atorvastatin Calcium (Lipitor) 20 mg PO HS [facility] Last Admin: 07/01/17 21:07 Dose: 20 mg Furosemide (Lasix) 40 mg PO DAILY [facility] Last Admin: 07/02/17 08:48 Dose: 40 mg Hydrochlorothiazide (Hydrodiuril) 25 mg PO DAILY [facility] Last Admin: 07/02/17 08:48 Dose: 25 mg Lactic Acid (Lac-Hydrin 12% Lotion (225 G)) 1 applic EXT BID [facility] Last Admin: 07/02/17 08:49 Dose: 1 applic Losartan Potassium (Cozaar) 50 mg PO BID [facility] Last Admin: 07/02/17 08:47 Dose: 50 mg Metoprolol Succinate (Toprol Xl) 100 mg PO DAILY [facility] Last Admin: 07/02/17 08:48 Dose: 100 mg Sodium Chloride ([place] Nasal [place]) 2 sprays DAR BID [facility] Last Admin: 07/02/17 08:49 Dose: 1 applic - Labs Labs: 06/26/17 05:30 06/26/17 05:30 - Additional Findings Additional findings: Constitutional- cooperative, awake, alert Head- NCAT, PERRL Eye- PERRL, EOMI ENT- normal exam, MMM. Neck- normal inspection, supple, no JVD Respiratory- CTAB, no wheezes rales rhonchi Cardiovascular- RRR, +S1, +S2 no MRG GI/Abdominal- normal bowel sounds, soft, no mass, no hsm Skin- warm, dry Extremities Exam- normal capillary refill, normal inspection Neurological Exam- alert, awake, oriented Psych- normal mood, normal affect Assessment and Plan - Assessment and Plan (Free Text) Plan: This is an 81 year old male with pmh of atrial fibrillation, s/p 2 CVA tx with tPA, bladder cancer, htn, GERD, chronic CHF, CAD, transferred from [facility] on 06/22/2017 for acute rehabilitation after 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 Acute CVA with Hemianopia of the left eye Dr. Alston neurology consulted Dr. Gomez cardiology consulted 1st. CT Head - No acute infarct Repeat Head CT on 06/18 demonstrated no hemorrhagic conversion Third repeat Head CT on 06/19 (ordered due to new onset headache in light of current sequelae) demonstrates confirmation of ischemic [employer] territory infarct. MRI brain w.o. contrast revealed trace petechial hemorrhages questioned at the medial anterior right occipital lobe with signal changes seen only in the gradient All anticoagulation has been stopped as a result of the hemorrhages. Repeat Head CT on 06/21 shows: Subtle high attenuation in the anterior superior occipital lobe could represent petechial hemorrhage. Per Dr. Alston--no anticoagulation at this point including no aspirin OT/PT History of CVA (cerebrovascular accident) Patient had two CVA, both with TPA admin No TPA for this current CVA due to contraindication Was previously on warfarin but stopped due to bleeding s/p TURB Dr. Alston recommended Eliquis Crestor 10 PO HS Unable to anticoagulate due to the hemorrhages seen on MRI on 06/19/[address] Alston--no anticoagulation at this point including no aspirin Hypertension- well controlled Lasix 20 PO HS HCTZ 25 PO QD Losartan 50 mg po q12 H Metoprolol 100 mg po daily Atrial Fibrillation Rate controlled Metoprolol 50 mg PO QD Unable to anticoagulate due to the hemorrhages Repeat Head CT on 06/21 shows: Subtle high attenuation in the anterior superior occipital lobe could represent petechial hemorrhage. Per Dr. Alston--no anticoagulation at this point including no aspirin until after 4 weeks: Start with low dose ASA and low dose Eliquis. If medically stable at theat time , Eliquis can be increased to theraupetic dose of 5mg BID DVT Unable to anticoagulate at this time due to hemorrhage seen on MRI and follow up head CT IVC Filter History of epistaxis Sodium chloride nasal spray BID Per ENT Dr. Olsen, outpatient follow up Leg pain Likely venous stasis Lac-Hydrin emollient and topical steroid Improvements noted Prophylactic measure Heart Healthy Diet mod consistent carbs Protonix 40 mg SCDs c/i due to leg swelling Medication anticoagulation c/i due to petechial hemorrhage
[2017-07-02 20:00] VITALS: O2SAT 99
[2017-07-03] MEDS: Alum-Mag Hydrox-Simethicone Susp (30 mL) PO PRN (08:25)
[2017-07-03] MEDS: Nasal Spray(Ocean spray) NAS SCH ×2 (08:26→17:13)
[2017-07-03] MEDS: Metoprolol Succinate 100 mg XL Tab PO SCH (08:28)
--- NOTE | 2017-07-03 14:04 | CP.PCM.PN ---
Subjective - Date & Time of Evaluation Date of Evaluation: 07/03/17 Time of Evaluation: 11:00 - Subjective Subjective: no acute complaints at present, alert freindly Objective - Vital Signs/Intake and Output Vital Signs (last 24 hours): Temp Pulse Resp BP Pulse Ox 96.4 F L 90 20 139/80 99 07/03/17 08:01 07/03/17 08:28 07/03/17 08:01 07/03/17 08:28 07/03/17 08:01 - Medications Medications: Current Medications Acetaminophen (Tylenol 325mg Tab) 650 mg PO Q4 PRN PRN Reason: Headache Last Admin: 07/03/17 02:31 Dose: 650 mg Acetaminophen (Tylenol 325mg Tab) 650 mg PO Q8H PRN PRN Reason: pain 1-10. Last Admin: 06/29/17 21:58 Dose: 650 mg Al Hydrox/Mg Hydrox/Simethicone (Maalox Plus 30 Ml) 30 ml PO Q6 PRN PRN Reason: Indigestion / Heartburn Last Admin: 07/03/17 08:25 Dose: 30 ml Atorvastatin Calcium (Lipitor) 20 mg PO HS [facility] Last Admin: 07/02/17 21:00 Dose: 20 mg Furosemide (Lasix) 40 mg PO DAILY [facility] Last Admin: 07/03/17 08:27 Dose: 40 mg Hydrochlorothiazide (Hydrodiuril) 25 mg PO DAILY [facility] Last Admin: 07/03/17 08:27 Dose: 25 mg Lactic Acid (Lac-Hydrin 12% Lotion (225 G)) 1 applic EXT BID [facility] Last Admin: 07/03/17 08:27 Dose: 1 applic Losartan Potassium (Cozaar) 50 mg PO BID [facility] Last Admin: 07/03/17 08:27 Dose: 50 mg Metoprolol Succinate (Toprol Xl) 100 mg PO DAILY [facility] Last Admin: 07/03/17 08:28 Dose: 100 mg Sodium Chloride ([place] Nasal [place]) 2 sprays DAR BID [facility] Last Admin: 07/03/17 08:26 Dose: 1 applic - Labs Labs: 06/26/17 05:30 06/26/17 05:30 - Head Exam Head Exam: ATRAUMATIC, NORMAL INSPECTION, NORMOCEPHALIC - Eye Exam Eye Exam: EOMI, Normal appearance, PERRL Pupil Exam: NORMAL ACCOMODATION - ENT Exam ENT Exam: Mucous Membranes Moist, Normal Exam - Neck Exam Neck Exam: Full ROM, Normal Inspection - Respiratory Exam Respiratory Exam: NORMAL BREATHING PATTERN - Cardiovascular Exam Cardiovascular Exam: REGULAR RHYTHM - GI/Abdominal Exam GI & Abdominal Exam: Soft, Normal Bowel Sounds - Rectal Exam Rectal Exam: NORMAL INSPECTION - Exam External exam: NORMAL EXTERNAL EXAM - Extremities Exam Extremities Exam: Normal Capillary Refill, Normal Inspection - Back Exam Back Exam: NORMAL INSPECTION - Neurological Exam Neurological Exam: Alert, Awake Neuro motor strength exam: Left Upper Extremity: 3, Right Upper Extremity: 3, Left Lower Extremity: 3, Right Lower Extremity: 3 - Psychiatric Exam Psychiatric exam: Normal Affect, Normal Mood - Skin Skin Exam: Dry, Intact Assessment and Plan (1) Abdominal pain Status: Acute (2) Acute CVA (cerebrovascular accident) Assessment & Plan: plan for physical, occupational, rec ,therapy program for team conference Status: Acute (3) Atrial fibrillation Status: Acute (4) Bladder CA in situ Status: Acute (5) Constipation Status: Acute (6) Encounter for removal of nasal packing Status: Acute (7) Epistaxis Status: Acute (8) Gross hematuria Status: Acute
[2017-07-04] MEDS: Nasal Spray(Ocean spray) NAS SCH (08:24)
[2017-07-04] MEDS: Alum-Mag Hydrox-Simethicone Susp (30 mL) PO PRN (09:29)
[2017-07-04] MEDS: Metoprolol Succinate 100 mg XL Tab PO SCH (09:37)
[2017-07-04 09:38] VITALS: BP 117/69; PULSE 95
[2017-07-04 09:55] VITALS: TEMP 97.2
--- NOTE | 2017-07-04 11:58 | CP.PCM.PN ---
Subjective - Date & Time of Evaluation Date of Evaluation: 07/04/17 Time of Evaluation: 10:00 - Subjective Subjective: patinet with no acute complaints , ready for discharge Objective - Vital Signs/Intake and Output Vital Signs (last 24 hours): Temp Pulse Resp BP Pulse Ox 97.2 F L 95 H 20 117/69 99 07/04/17 08:00 07/04/17 09:37 07/04/17 08:00 07/04/17 09:37 07/04/17 08:00 - Medications Medications: Current Medications Acetaminophen (Tylenol 325mg Tab) 650 mg PO Q4 PRN PRN Reason: Headache Last Admin: 07/03/17 02:31 Dose: 650 mg Acetaminophen (Tylenol 325mg Tab) 650 mg PO Q8H PRN PRN Reason: pain 1-10. Last Admin: 06/29/17 21:58 Dose: 650 mg Al Hydrox/Mg Hydrox/Simethicone (Maalox Plus 30 Ml) 30 ml PO Q6 PRN PRN Reason: Indigestion / Heartburn Last Admin: 07/04/17 09:29 Dose: 30 ml Atorvastatin Calcium (Lipitor) 20 mg PO HS [facility] Last Admin: 07/03/17 21:11 Dose: 20 mg Furosemide (Lasix) 40 mg PO DAILY [facility] Last Admin: 07/04/17 08:26 Dose: 40 mg Hydrochlorothiazide (Hydrodiuril) 25 mg PO DAILY [facility] Last Admin: 07/04/17 08:27 Dose: Not Given Lactic Acid (Lac-Hydrin 12% Lotion (225 G)) 1 applic EXT BID [facility] Last Admin: 07/04/17 08:24 Dose: 1 applic Losartan Potassium (Cozaar) 50 mg PO BID [facility] Last Admin: 07/04/17 08:23 Dose: Not Given Metoprolol Succinate (Toprol Xl) 100 mg PO DAILY [facility] Last Admin: 07/04/17 09:37 Dose: Not Given Sodium Chloride ([place] Nasal [place]) 2 sprays DAR BID [facility] Last Admin: 07/04/17 08:24 Dose: 2 applic - Labs Labs: 06/26/17 05:30 06/26/17 05:30 - Head Exam Head Exam: ATRAUMATIC, NORMAL INSPECTION, NORMOCEPHALIC - Eye Exam Eye Exam: EOMI, Normal appearance, PERRL Pupil Exam: NORMAL ACCOMODATION - ENT Exam ENT Exam: Mucous Membranes Moist, Normal Exam - Neck Exam Neck Exam: Normal Inspection - Respiratory Exam Respiratory Exam: NORMAL BREATHING PATTERN - Cardiovascular Exam Cardiovascular Exam: REGULAR RHYTHM - GI/Abdominal Exam GI & Abdominal Exam: Soft, Normal Bowel Sounds - Rectal Exam Rectal Exam: NORMAL INSPECTION - Exam External exam: NORMAL EXTERNAL EXAM - Extremities Exam Extremities Exam: Full ROM, Normal Capillary Refill, Normal Inspection - Back Exam Back Exam: NORMAL INSPECTION - Neurological Exam Neurological Exam: Alert, Awake Neuro motor strength exam: Left Upper Extremity: 3, Right Upper Extremity: 3, Left Lower Extremity: 3, Right Lower Extremity: 3 - Psychiatric Exam Psychiatric exam: Normal Affect, Normal Mood - Skin Skin Exam: Dry, Intact Assessment and Plan (1) Abdominal pain Status: Acute (2) Acute CVA (cerebrovascular accident) Assessment & Plan: plan for physical, occupational therapy for Dc today for equipment St can with home pt and ot Status: Acute (3) Atrial fibrillation Status: Acute (4) Bladder CA in situ Status: Acute (5) Constipation Status: Acute (6) Encounter for removal of nasal packing Status: Acute (7) Epistaxis Status: Acute (8) Gross hematuria Status: Acute
--- NOTE | 2017-07-04 13:37 | CP.PCM.DIS ---
Provider - Provider Date of Admission: 06/22/17 22:50 Attending physician: Juanito Juarez Time Spent in preparation of Discharge (in minutes): 35 Hospital Course - Lab Results Lab Results: Most Recent Lab Values WBC 7.2 K/uL (4.8-10.8) 06/26/17 05:30 RBC 5.11 Mil/uL (4.40-5.90) 06/26/17 05:30 Hgb 14.4 g/dL (12.0-18.0) 06/26/17 05:30 Hct 43.5 % (35.0-51.0) 06/26/17 05:30 MCV 85.0 fl (80.0-94.0) 06/26/17 05:30 MCH 28.1 pg (27.0-31.0) 06/26/17 05:30 MCHC 33.1 g/dL (33.0-37.0) 06/26/17 05:30 RDW 15.3 % (11.5-14.5) H 06/26/17 05:30 Plt Count 199 K/uL (130-400) 06/26/17 05:30 Sodium 139 mmol/l (132-148) 06/26/17 05:30 Potassium 4.0 MMOL/L (3.6-5.0) 06/26/17 05:30 Chloride 100 mmol/L (98-107) 06/26/17 05:30 Carbon Dioxide 34 mmol/L (22-30) H 06/26/17 05:30 Anion Gap 9 (10-20) L 06/26/17 05:30 BUN 34 mg/dl (9-20) H 06/26/17 05:30 Creatinine 1.2 mg/dl (0.8-1.5) 06/26/17 05:30 Est GFR ( Amer) > 60 06/26/17 05:30 Est GFR (Non-Af Amer) 58 06/26/17 05:30 POC Glucose (mg/dL) 99 mg/dL (65-110) 06/25/17 16:24 Random Glucose 96 mg/dL (75-110) 06/26/17 05:30 Hemoglobin A1c 5.2 % (4.2-6.5) 06/24/17 09:10 Calcium 9.0 mg/dL (8.4-10.2) 06/26/17 05:30 - Hospital Course Hospital Course: This is an 81 year old male with pmh of atrial fibrillation, s/p 2 CVA tx with tPA, bladder cancer, htn, GERD, chronic CHF, CAD, transferred from [facility] on 06/22/2017 for acute rehabilitation after 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 Acute CVA with Hemianopia of the left eye Dr. Alston neurology consulted Dr. Gomez cardiology consulted 1st. CT Head - No acute infarct Repeat Head CT on 06/18 demonstrated no hemorrhagic conversion Third repeat Head CT on 06/19 (ordered due to new onset headache in light of current sequelae) demonstrates confirmation of ischemic [employer] territory infarct. MRI brain w.o. contrast revealed trace petechial hemorrhages questioned at the medial anterior right occipital lobe with signal changes seen only in the gradient All anticoagulation has been stopped as a result of the hemorrhages. Repeat Head CT on 06/21 shows: Subtle high attenuation in the anterior superior occipital lobe could represent petechial hemorrhage. Per Dr. Alston--no anticoagulation at this point including no aspirin until seen by him as outpatient OT/PT History of CVA (cerebrovascular accident) Patient had two CVA, both with TPA admin No TPA for this current CVA due to contraindication Was previously on warfarin but stopped due to bleeding s/p TURB Dr. Alston recommended Eliquis Crestor 10 PO HS Unable to anticoagulate due to the hemorrhages seen on MRI on 06/19/[address] Alston--no anticoagulation at this point including no aspirin Hypertension- well controlled Lasix 20 PO HS HCTZ 25 PO QD Losartan 50 mg po q12 H Metoprolol 100 mg po daily Atrial Fibrillation Rate controlled Metoprolol 50 mg PO QD Unable to anticoagulate due to the hemorrhages Repeat Head CT on 06/21 shows: Subtle high attenuation in the anterior superior occipital lobe could represent petechial hemorrhage. Per Dr. Alston--no anticoagulation at this point including no aspirin until after 4 weeks: Start with low dose ASA and low dose Eliquis. If medically stable at theat time , Eliquis can be increased to theraupetic dose of 5mg BID DVT Unable to anticoagulate at this time due to hemorrhage seen on MRI and follow up head CT IVC Filter History of epistaxis Sodium chloride nasal spray BID Per ENT Dr. Olsen, outpatient follow up Leg pain Likely venous stasis Lac-Hydrin emollient and topical steroid Improvements noted Prophylactic measure Heart Healthy Diet mod consistent carbs Protonix 40 mg SCDs c/i due to leg swelling Medication anticoagulation c/i due to petechial hemorrhage Discharge Exam - Head Exam Head Exam: ATRAUMATIC, NORMAL INSPECTION, NORMOCEPHALIC - Eye Exam Eye Exam: Normal appearance - ENT Exam ENT Exam: Mucous Membranes Moist - Respiratory Exam Respiratory Exam: Clear to PA & Lateral, NORMAL BREATHING PATTERN. absent: Rales, Rhonchi, Wheezes - Cardiovascular Exam Cardiovascular Exam: Irregular Rhythm, +S1, +S2 - GI/Abdominal Exam GI & Abdominal Exam: Normal Bowel Sounds, Soft. absent: Tenderness Additional comments: obese - Neurological Exam Neurological exam: Alert, Oriented x3 Additional comments: walks with cane - Psychiatric Exam Psychiatric exam: Anxious Discharge Plan - Discharge Medications Prescriptions: Furosemide [Lasix] 40 mg PO DAILY #30 tab Losartan [Cozaar] 25 mg PO DAILY #30 tab Metoprolol Succinate [Toprol XL] 50 mg PO DAILY #30 tab Rosuvastatin Calcium [Crestor] 10 mg PO HS #30 tab Sodium Chloride Nasal Velpen [[place] Nasal Vel[place]] 2 sprays DAR BID #1 bottle - Follow Up Plan Condition: GOOD Disposition: HOME/ ROUTINE Instructions: Atrial Fibrillation (DC), Heart Healthy Diet (DC), Chronic Hypertension (DC) Referrals: Nikolai Alston MD [Medical Doctor] - Reginald Gomez MD [Medical Doctor] - Gosia Graves DPM [Staff Provider] - Lionel Carreon MD [Medical Doctor] - Jesus Velez MD [Medical Doctor] -
== END 2017-07-04 14:30 | disposition home or self-care (01) | DRG 57 ==
PROVIDERS: ADMIT Internal Medicine; ATTEND Internal Medicine
PROC: F07Z9FZ Gait Training/Functional Ambulation Treatment using Assistive, Adaptive, Supportive or Protective Equipment (ICD-10-PCS; principal; 2017-06-22)
PROC: F08Z4FZ Home Management Treatment using Assistive, Adaptive, Supportive or Protective Equipment (ICD-10-PCS; 2017-06-22)
PROC: F07J6FZ Therapeutic Exercise Treatment of Musculoskeletal System - Head and Neck using Assistive, Adaptive, Supportive or Protective Equipment (ICD-10-PCS; 2017-06-23)
PROC: 4A07X0Z Measurement of Visual Acuity, External Approach (ICD-10-PCS; 2017-06-23)
DX: I69.398 Other sequelae of cerebral infarction (principal); I11.0 Hypertensive heart disease with heart failure; H53.47 Heteronymous bilateral field defects; I50.9 Heart failure, unspecified; I48.91 Unspecified atrial fibrillation; I25.10 Atherosclerotic heart disease of native coronary artery without angina pectoris; E11.9 Type 2 diabetes mellitus without complications; H53.8 Other visual disturbances; K21.9 Gastro-esophageal reflux disease without esophagitis; I87.8 Other specified disorders of veins; R23.3 Spontaneous ecchymoses; K59.09 Other constipation; Z85.51 Personal history of malignant neoplasm of bladder; Z87.891 Personal history of nicotine dependence